=== PATIENT | male | born 1960 | race Caucasian/White ===

== ENCOUNTER 2023-02-02 13:39 | Observation (INO) | payer OTHER, SELFPAY ==
[2023-02-02] VITALS (7 sets, daily range): BP systolic 133–168; BP diastolic 73–83; PULSE 79–114; RESP 16–22; TEMP 36.6–37.2; O2SAT 96–100; BMI 31.1
--- NOTE | ~2023-02-02 | XR_ITS ---
EXAMINATION: XR chest 1V portable Exam Date/Time: 02/02/2023 14:45 CDT HISTORY: seizure Comparison: None. RESULT: Lines, tubes, and devices: None. Lungs and pleura: Mild senescent change, otherwise clear. Cardiomediastinal silhouette: Stable. Other: No acute osseous or upper abdominal finding. IMPRESSION: No acute cardiopulmonary process. Reviewed, dictated and finalized at location K.
--- NOTE | ~2023-02-02 | CT_ITS ---
EXAMINATION: CT brain wo con DATE: 02/02/2023 14:37 INDICATION: seizure . TECHNIQUE: Computed tomography (CT) of the head was performed without intravenous contrast. The mA wa s adjusted according to patient size. Iterative reconstruction technique was employed. The dose-lengt h product was 605.33 mGy-cm. COMPARISON: None. FINDINGS: Motion artifact present. No acute intracranial hemorrhage or extra-axial fluid collection. No hydrocephalus, mass, or herniation. No acute ischemic infarct. Unremarkable dural venous sinus attenuation. No acute osseous abnormality. Left maxillary retention cyst/polyp, the remaining aerated spaces are clear. IMPRESSION: No acute intracranial process. Reviewed, dictated and finalized at location K.
--- NOTE | ~2023-02-02 | MR_ITS ---
EXAMINATION: MR brain/brain stem wo/w con DATE: 02/03/2023 14:00 INDICATION: new onset seizure TECHNIQUE: Magnetic resonance imaging (MRI) of the brain and brainstem was performed without and with 20 cc MultiHance intravenous contrast. Sequences included sagittal and axial T1-weighted SE, axial d iffusion-weighted FS EPI ASSET, axial T2*-weighted GRE, axial T2-weighted FLAIR Propeller, and axial T2-weighted Propeller. Postcontrast axial and coronal T1-weighted SE was obtained. Apparent diffusion coefficient (ADC) maps were created. COMPARISON: CT brain 02/02/2023. FINDINGS: No abnormal restricted diffusion to suggest acute ischemic infarct. No MRI evidence of hemorrhage or extra-axial collection. No suspicious foci of susceptibility to suggest prior intraparenchymal hemorr leonie. Normal white matter signal. No evidence of advanced or lobar predominant parenchymal volume los s. The basilar cisterns are patent. Flow voids are preserved. Retention cysts or polyps in the left m axillary sinus, the remaining aerated spaces are within normal limits. Globes and orbital contents ar e within normal limits. IMPRESSION: Unremarkable MR brain findings. Reviewed, dictated and finalized at location K.
--- NOTE | 2023-02-02 13:51 | ECG_ITS ---
Measurements Intervals [place] Rate: 109 P: 43 MI: 181 QRS: 18 QRSD: 100 T: 53 QT: 324 QTc: 437 Interpretive Statements [address]US T[address]ARDIA ST SEGMENT ABNORMALITY, CONSIDER ANTERIOR ISCHEMIA ABNORMAL ECG NO PREVIOUS ECG AVAILABLE FOR COMPARISON Electronically Signed On 02-03-2023 13:24:06 CDT by Austyn Farley M.D.
[2023-02-02] MEDS: LACTATED RINGERS 1,000 ML 999 ML IV CONT ×2 (14:03→15:00)
[2023-02-02 14:17] LABS: Basophils Absolute Auto 0.1 K/mm3 (0.0-0.1); Basophils Percent Auto 1.2 % (0.2-1.2); Eosinophils Absolute Auto 0.1 K/mm3 (0-0.3); Eosinophils Percent Auto 1.8 % (0-4.4); Immature Granulocyte Absolute 0.04 K/mm3 (0.00-0.031); Immature Granulocyte Percent A 0.5 % (0-0.5); Lymphocytes Absolute Auto 3.27 K/mm3 (0.9-3.2); Lymphocytes Percent Auto 42.6 % (18.3-44.2); Mean Corpuscular Hemoglobin 29.5 pg (26-34); Mean Corpuscular Volume 86.7 fl (80-100); Mean Platelet Volume 10.6 fl (7.4-10.4); Monocytes Absolute Auto 0.6 K/mm3 (0.1-0.6); Monocytes Percent Auto 8.3 % (2.6-8.5); Neutrophils Absolute Auto 3.5 K/mm3 (1.3-6.7); Neutrophils Percent Auto 45.6 % (45.5-73.1); Platelet Count Result 217 k/mm3 (150-375); Red Blood Count 5.42 M/mm3 (4.6-6.20); White Blood Count 7.7 K/mm3 (4.5-10.0)
--- NOTE | 2023-02-02 14:19 | ED.SEIZURE ---
HPI - Seizure General Chief Complaint: Seizure Stated Complaint: seizure Time Seen by Provider: 02/02/23 13:45 Source: patient, EMS and RN notes reviewed Mode of arrival: EMS Limitations: no limitations History of Present Illness HPI Narrative: This is a 62 year old male with history of hyperlipidemia who presents for evaluation of a seizure. Patient was at a store when he states he began to feel funny. EMS states a call was sent out for cardiac arrest but patient had pulse and was breathing on their arrival. Patient was oriented x 1 and he had bitten his tongue. Patient is more alert now. He denies history of seizure. He denies chest pain , headache, shortness of breath. He denies history of cancer or traumatic brain injury. Nursing reports that patient was standing in line when he just dropped . It is unclear if there was seizure activity. Related Data Home Medications Medication Instructions Recorded Confirmed rosuvastatin 10 mg tablet 10 mg PO DAILY 02/02/23 02/02/23 Allergies Allergy/AdvReac Type Severity Reaction Status Date / Time No Known Allergies Allergy Verified 02/02/23 14:00 Review of Systems Constitutional: Constitutional: Reports fatigue and Denies weakness Cardiovascular: Cardiovascular: Denies syncope, Denies rapid heart rate, Denies irregular heart rhythm, Denies leg edema and Denies dyspnea Respiratory: Respiratory: Denies chest congestion, Denies hemoptysis, Denies excessive phlegm production and Denies dyspnea Gastrointestinal: Gastrointestinal: Denies abdominal pain, Denies hematochezia, Denies diarrhea and Denies vomiting Genitourinary: Genitourinary: Denies hematuria, Denies dysuria, Denies penile discharge and Denies testicular pain Musculoskeletal: Musculoskeletal: Denies joint swelling, Denies loss of height and Denies muscle weakness Neurologic: Denies syncope, Denies focal weakness and Denies weakness PMFSH Past Medical History Medical History (Updated 02/03/23 @ 17:31 by Lorie Bahena MD) Hyperlipidemia Surgical History Surgical History (Updated 02/03/23 @ 02:01 by Anjelica Senior APRN) History of knee replacement Social History Social History (Updated 02/03/23 @ 02:02 by Anjelica Senior APRN) Social History: Currently lives at home with his . Surrogate decision maker: Cyn Schreiber, . Full code. Smoking status: Never smoker Alcohol intake: current Drinks per week: 3 Alcohol use details: occasional Substance use: never Substance use type: does not use Lack of Transportation: No Lack of Food: Never True Current Housing: I Have Housing Concerned About Future Housing: No Difficulty Paying Gas/Electric Bills: No Difficulty Paying for Meds: No Currently Unemployed: No Education: Bachelor's Degree Difficulty w/ Childcare or Family Care: No Spiritual care concerns: No Exam Const: General: no acute distress and alert Nutritional Appearance: well nourished Orientation/consciousness: patient oriented x3 HENMT: Head: normal to inspection Face and sinus: normal facial exam Mouth: Yes lip normal and Yes moist mucous membranes Throat: uvula midline Other: ecchymosis to sides of tongue, no large laceration, no active bleeding Eyes: Pupils: Equal, round and reactive pupils present EOM: EOMs intact bilaterally Neck: Neck: normal visual inspection Chest: Chest palpation & inspection: normal inspection of the chest Resp: Effort & Inspection: normal respiratory effort Auscultation: clear to auscultation bilaterally Cardio: Rate: tachycardic Rhythm: regular rhythm Heart sounds: no murmurs GI: Auscultation: normal bowel sounds Skin: General skin exam: normal color Neuro: General: patient oriented x3, moves all extremities and CN's II-XI intact bilaterally Speech: normal speech Extrem: General: normal to inspection Psych: Appearance: grossly normal Mental Status: mental status grossly n
[2023-02-02 14:27] LABS: Prothrombin Time 13.5 Seconds (11.1-14.7)
[2023-02-02 14:28] LABS: Ethanol < 10 mg/dL (<10)
[2023-02-02 14:28] LABS: Partial Thromboplastin Time 23.9 SECONDS (22.3-36.8)
[2023-02-02 14:29] LABS: Lactic Acid Reflex 7.4 mmol/L (0.7-2.0)
[2023-02-02 14:30] LABS: Albumin Level 4.2 g/dL (3.5-5.1); Alkaline Phosphatase 67 U/L (38-126); Anion Gap 17 mmol/L (8-16); Aspartate Amino Transferase 31 U/L (17-59); Bilirubin,Total 0.5 mg/dL (0.2-1.3); Blood Urea Nitrogen 13 mg/dL (9-20); Calcium 8.7 mg/dL (8.4-10.2); Carbon Dioxide 13 mmol/L (22-30); Chloride 108 mmol/L (98-107); Estimated CRCL calculation 81 ml/min; Estimated Glomerular Filt Rate > 60; Glucose 109 mg/dL (65-110); Magnesium 2.8 mg/dL (1.6-2.3); Potassium 3.7 mmol/L (3.4-5.0); Sodium 138 mmol/L (137-145)
[2023-02-02 14:38] LABS: Alanine Aminotransferase 40 U/L (6-50)
[2023-02-02 14:39] LABS: Troponin I < 0.012 ng/mL (0.000-0.034)
[2023-02-02 14:57] LABS: Add Urine Microscopic? YES; Appearance Urine Clear (Clear); Bacteria Urine None Seen /hpf; Bilirubin Urine Negative (Negative); Blood Urine 1+ (Negative); Color Urine Yellow (Yellow); Glucose Urine UA Negative (Negative); Ketones Urine Negative (Negative); Leukocyte Esterase Ur Negative LEU/UL (Negative); Nitrate Urine Negative (Negative); Non Pathogenic Casts 0-2; Protein Urine Trace mg/dL (Negative); RBC Urine 0-2 /hpf (0-2); Specific Grav Ur 1.013 (1.001-1.035); Squamous Epithelial Cell Urine None seen /hpf (Few); Urobilinogen Urine 0.2 mg/dL (<2.0); WBC Urine 0-5 /hpf; pH Urine 5.5 (5.0-9.0)
[2023-02-02 15:37] LABS: Barbiturate Screen Urine Negative (Negative); Benzodiazepines Screen Urine Negative (Negative)
[2023-02-02 15:38] LABS: Amphetamine Screen Urine Negative (Negative); Cannabinoid Screen Urine Negative (Negative); Cocaine Screen Urine Negative (Negative); Methadone Screen Urine Negative (Negative); Opiate Screen Urine Negative (Negative)
[2023-02-02 15:43] LABS: Phencyclidine Screen Urine Negative (Negative)
[2023-02-02 17:17] LABS: Reflex Lactic Acid Yes or No Add Lactic
[2023-02-02 17:50] LABS: Lactic Acid 1.3 mmol/L (0.7-2.0)
--- NOTE | 2023-02-02 18:03 | PM.IMHP ---
H&P: HPI History of Present Illness Date/Time: 02/02/23 18:03 Chief Complaint: Seizure Narrative: 62-year-old male presents here with seizure with past medical history of hyperlipidemia. Patient was at [facility] today with his when he began to feel dizzy. Dizziness lasted for approximately 5 minutes. Patient alerted his that he did not feel well and they attempted to exit the store. felt grocery cart began to pull away from her and she was able to pull patient as he began to fall over. Bystander immediately assisted the in lowering patient to the floor. reports that patient locked up and then began to shake in all extremities. Eyes rolled back and he became cyanotic. Seizure lasted approximately 10-15 minutes, confirmed with phone calls that were made during the event as time markers. Bystander initially started compression however they were ceased and patient was rolled onto his side. noted blood and drool from patient's mouth. No incontinence. Patient remained altered throughout EMS transport. Now A/Ox4. No prior history of seizures. However patient does reports an abnormal event that happened approximately 2 years ago in June of 2020. Patient fell off for 2 weeks. He was assaulting his driveway when he began experiencing similar dizziness to today, dizziness lasted approximately 5 minutes. Patient has no recollection but, patient fell backwards striking his head on driveway with subsequent laceration requiring stitches. Patient then crawled to the front door, vaguely remembers getting there where his found him. No recollection of falling or hitting head. Was not incontinent. reports that he was confused after. He was brought to the emergency department where they performed a cardiac workup which was benign. Current complaint of tenderness with palpation along his left chest, reports this is where CPR was briefly performed before bystander realized patient was having a seizure. Review of Systems Review of Systems: He denies any current headache, dizziness, changes in sensation, extremity weakness, or neuro deficits. [facility] Past Medical History Medical History (Updated 02/03/23 @ 02:02 by Anjelica Senior APRN) Hyperlipidemia Surgical History Surgical History (Updated 02/03/23 @ 02:01 by Anjelica Senior APRN) History of knee replacement Social History Social History (Updated 02/03/23 @ 02:02 by Anjelica Senior APRN) Social History: Currently lives at home with his . Surrogate decision maker: Cyn Schreiber, . Full code. Smoking status: Never smoker Alcohol intake: current Drinks per week: 3 Alcohol use details: occasional Substance use: never Substance use type: does not use Lack of Transportation: No Lack of Food: Never True Current Housing: I Have Housing Concerned About Future Housing: No Difficulty Paying Gas/Electric Bills: No Difficulty Paying for Meds: No Currently Unemployed: No Education: Bachelor's Degree Difficulty w/ Childcare or Family Care: No Spiritual care concerns: No Meds Home Medications and Allergies Home Medications Medication Instructions Recorded Confirmed Type rosuvastatin 10 mg tablet 10 mg PO DAILY 02/02/23 02/02/23 History Allergies Allergy/AdvReac Type Severity Reaction Status Date / Time No Known Allergies Allergy Verified 02/02/23 14:00 Vital Signs Vital Signs - 24 hr 02/02/23 13:38 02/02/23 15:32 02/02/23 16:16 Temperature 98.4 F Pulse Rate 114 H 88 83 Respiratory Rate 18 16 18 Blood Pressure 168/81 H 133/83 140/79 Pulse Oximetry 96 100 100 Oxygen Delivery Room Air 02/02/23 16:46 Temperature Pulse Rate 84 Respiratory Rate 18 Blood Pressure 138/80 Pulse Oximetry 100 Oxygen Delivery Exam Const: General: comfortable and no acute distress HENMT: Mouth: Yes moist mucous membranes Eyes: General: appearance normal, b
[2023-02-03] VITALS (9 sets, daily range): BP systolic 120–143; BP diastolic 83–90; PULSE 60–91; RESP 16–20; TEMP 36.2–36.3; O2SAT 98–99
[2023-02-03 06:54] LABS: Basophils Absolute Auto 0.1 K/mm3 (0.0-0.1); Basophils Percent Auto 0.6 % (0.2-1.2); Eosinophils Absolute Auto 0.1 K/mm3 (0-0.3); Hematocrit 44.9 % (42.0-52.0); Hemoglobin 15.4 g/dL (14.0-18.0); Immature Granulocyte Absolute 0.01 K/mm3 (0.00-0.031); Immature Granulocyte Percent A 0.1 % (0-0.5); Lymphocytes Absolute Auto 1.57 K/mm3 (0.9-3.2); Lymphocytes Percent Auto 20.3 % (18.3-44.2); Mean Corpuscular HGB Conc 34.3 g/dl (32-36); Mean Corpuscular Hemoglobin 29.8 pg (26-34); Mean Platelet Volume 10.6 fl (7.4-10.4); Monocytes Absolute Auto 0.6 K/mm3 (0.1-0.6); Monocytes Percent Auto 8.2 % (2.6-8.5); Neutrophils Absolute Auto 5.4 K/mm3 (1.3-6.7); Neutrophils Percent Auto 69.8 % (45.5-73.1); Platelet Count Result 171 k/mm3 (150-375); Red Blood Count 5.16 M/mm3 (4.6-6.20); Red Cell Distribution Width 13.2 % (11.5-14.5); White Blood Count 7.7 K/mm3 (4.5-10.0)
[2023-02-03 06:57] LABS: Alanine Aminotransferase 26 U/L (6-50); Albumin Level 3.8 g/dL (3.5-5.1); Alkaline Phosphatase 68 U/L (38-126); Anion Gap 5 mmol/L (8-16); Aspartate Amino Transferase 31 U/L (17-59); Blood Urea Nitrogen 11 mg/dL (9-20); Calcium 8.4 mg/dL (8.4-10.2); Carbon Dioxide 23 mmol/L (22-30); Chloride 109 mmol/L (98-107); Estimated CRCL calculation 87 ml/min; Estimated Glomerular Filt Rate > 60; Glucose 128 mg/dL (65-110); Potassium 3.8 mmol/L (3.4-5.0); Sodium 137 mmol/L (137-145)
[2023-02-03] MEDS: ENOXAPARIN 40 MG/0.4 ML SYRINGE SUB-Q (07:54)
[2023-02-03] MEDS: ROSUVASTATIN 10 MG TABLET PO (07:54)
--- NOTE | 2023-02-03 18:45 | PM.IMPN ---
Progress Note: A&P Assessment and Plan (1) Seizure: Code(s): R56.9 - Unspecified convulsions Status: Acute (2) New onset seizure: Code(s): R56.9 - Unspecified convulsions Status: Acute (3) Hyperlipidemia: Code(s): E78.5 - Hyperlipidemia, unspecified Status: Acute Plan 1. Seizure Head CT:? No acute intracranial MRI brain normal CXR: No acute cardiopulmonary process Neurology consulted - MD Pablo. recommending holding on antiepileptic medication due to possibility of being 1st seizure versus 2nd.? Pending neurology consult and evaluation Likely due to acute caffeine poisoning Q4 neuro checks and vital signs Tylenol and Zofran p.r.n. CBC and chemistry unremarkable, excluding magnesium of 2.8 Lactic acid normal now Negative UDS EKG showed sinus tachycardia, nonspecific ST and T-wave abnormality. Chronic Conditions -hyperlipidemia: Continue atorvastatin Diet:? Heart healthy GI Prophylaxis:? Not currently indicated DVT Prophylaxis:? SCD, Lovenox 40 Lines: pIV Code Status:? Full code Subjective Date/time seen: 02/03/23 18:45 Interval history: no issues or complaints. son brought up pt had an exorbitant amount of coffee/caffeine yesterday. He takes it regularly but this was an exorbitant amount plus he tried espresso for the first time. this is likely the cause per uptodate - At recommended doses, caffeine acts as a mild INJURY PREVENTION COORDINATOR stimulant, but in overdose, seizures can develop from antagonism of INJURY PREVENTION COORDINATOR adenosine receptors [3https://www.[employer].com/contents/fgvaj-iaktfsqq-wsuyzhznl/abstract/3]. mri brain and ct head both negative waiting for neuro consult pt is ambulatory and aysmptomatic Review of Systems Review of Systems: otherwise negative Exam Narrative: Const:?? General: comfortab le and no acute di stress HENMT:?? Mouth: Yes moist m ucous membranes Eyes:?? General: appearanc e normal, both eye s and all related structures? Sclera : sclerae normal? Pupils: Equal, rou nd and reactive pu pils present Resp:?? Effort & Inspectio n: normal respirat ory effort? Auscul tation: clear to a uscultation bilate rally Cardio:?? Rate: regular rate ? Rhythm: regular rhythm? Other: S1 -S2 present withou t murmur, rub, ect opy ? GI:?? GI Palp: Yes Soft to palpation? Ausc ultation: normal b owel sounds Skin:?? General skin exam: normal color and no rashes or lesio ns noted? Wounds: no wounds Neuro:?? Speech: normal spe ech? Motor exam (n euro): 5/5 motor s trength present th roughout? Sensory Exam: normal sensa tion? Other: A/Ox 4 ? Extrem:?? General: normal to inspection? Other : No edema ? Psych:?? Mental Status: men jean-claude status grossly normal? Affect: n ormal affect? Othe r: Good insight a nd judgment, pleas ant Objective Data Vital Signs Vital Signs: Vital Signs - 24 hr 02/02/23 21:43 02/02/23 21:57 02/03/23 06:00 Temperature 97.8 F 97.4 F L Pulse Rate 79 74 Respiratory Rate 18 18 Blood Pressure 135/7
[2023-02-04] VITALS: PULSE 53
[2023-02-04 04:00] VITALS: PULSE 54
[2023-02-04 05:21] VITALS: BP 119/95; PULSE 63; RESP 18; TEMP 35.7; O2SAT 99
[2023-02-04 08:00] VITALS: PULSE 73
[2023-02-04] MEDS: ROSUVASTATIN 10 MG TABLET PO (08:35)
[2023-02-04 12:00] VITALS: PULSE 80
--- NOTE | 2023-02-04 13:09 | WPDNEURCNPN ---
Assessment and Plan Assessment and plan (1) New onset seizure: Code(s): R56.9 - Unspecified convulsions Status: Acute Plan 1. Seizure disorder history of 1 seizure in the past as well all the pros and cons with the patient as well as his discussed he needs to be on the anticonvulsants and to be followed by a physician as an outpatient he has was instructed to drive and emphasized the driving will not be permitted before he follows with a neurologist or if he has no seizure for over the next 6 months. Consult date: 02/04/23 HPI: Octaviano Schreiber is a 62 year old male admitted to the hospital through the emergency room for the evaluation of her seizure patient reportedly was at a store when he stated he became to feel funny EMS was called was sent patient a pulse was breathing on the arrival was oriented x1 had bitten his tongue and was more alert he gave no history of seizures in the past no history of any other neurological symptomatology. 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 Surrogate decision maker: Cyn Schreiber, . Full code. Smoking status: Never smoker Alcohol intake: current Drinks per week: 3 Alcohol use details: occasional Substance use: never Substance use type: does not use Lack of Transportation: No Lack of Food: Never True Current Housing: I Have Housing Concerned About Future Housing: No Difficulty Paying Gas/Electric Bills: No Difficulty Paying for Meds: No Currently Unemployed: No Education: Bachelor's Degree Difficulty w/ Childcare or Family Care: No Spiritual care concerns: No Meds Home Medications and Allergies Home Medications Medication Instructions Recorded Confirmed Type rosuvastatin 10 mg tablet 10 mg PO DAILY 02/02/23 02/02/23 History Allergies Allergy/AdvReac Type Severity Reaction Status Date / Time No Known Allergies Allergy Verified 02/02/23 14:00 Vital Signs Vital Signs - 24 hr 02/03/23 14:00 02/03/23 16:00 02/03/23 20:00 Temperature 36.3 C L Pulse Rate 60 61 Respiratory Rate 20 Blood Pressure 124/83 Pulse Oximetry 99 Oxygen Delivery Room Air 02/03/23 21:46 02/03/23 20:00 02/04/23 00:00 Temperature 36.2 C L Pulse Rate 64 69 53 L Respiratory Rate 16 Blood Pressure 120/83 Pulse Oximetry 98 Oxygen Delivery 02/04/23 04:00 02/04/23 05:21 02/04/23 08:00 Temperature 35.7 C L Pulse Rate 54 L 63 73 Respiratory Rate 18 Blood Pressure 119/95 H Pulse Oximetry 99 Oxygen Delivery 02/04/23 12:00 Temperature Pulse Rate 80 Respiratory Rate Blood Pressure Pulse Oximetry Oxygen Delivery Exam Narrative: revealed him to be awake alert cooperative, head normocephalic with no cranial bruits, ear nose throat examination normal, neck supple with no cranial bruit or cervical bruits, heart regular with no murmur, lungs clear to auscultation, abdomen soft no organomegaly, neurologically awake alert oriented his speech nor dysphasic not dysarthric not dysphonic the pupils round regular feels the vision full extraocular movements. Face symmetrical tongue midline motor examination revealed him to have deidre
[2023-02-04] MEDS: levETIRAcetam Tablet 250 MG, levETIRAcetam Tablet 500 MG 750 MG PO (13:36)
[2023-02-04 14:00] VITALS: BP 141/88; PULSE 61; RESP 18; TEMP 36.5; O2SAT 97
--- NOTE | 2023-02-04 17:13 | PM.DS ---
DS: Admitting Diagnosis Discharge Date 02/04/23 Admitting Diagnosis seizure DS: Discharge Diagnosis Discharge Diagnosis (1) Hyperlipidemia: Code(s): E78.5 - Hyperlipidemia, unspecified Status: Acute (2) New onset seizure: Code(s): R56.9 - Unspecified convulsions Status: Acute (3) Seizure: Code(s): R56.9 - Unspecified convulsions Status: Acute Plan Primary epilepsy: Seizure disorder history of 1 seizure in the past as well all the pros and cons with the patient as well as his discussed he needs to be on the anticonvulsants and to be followed by a physician as an outpatient he has was instructed to drive and emphasized the driving will not be permitted before he follows with a neurologist or if he has no seizure for over the next 6 months. - was started on keppra 750 mg bid by neurologist - f/u with [place] in [place] [id number]. Seizure- Primary epilepsy vs acute caffeine poisoning Head CT:? No acute intracranial MRI brain normal CXR: No acute cardiopulmonary process Neurology consulted - MD Pablo. recommending holding on antiepileptic medication due to possibility of being 1st seizure versus 2nd.? Pending neurology consult and evaluation Likely due to?acute caffeine poisoning Q4 neuro checks and vital signs Tylenol and Zofran p.r.n. CBC and chemistry unremarkable, excluding magnesium of 2.8 Lactic acid normal now Negative UDS EKG showed sinus tachycardia, nonspecific ST and T-wave abnormality.Chronic Conditions -hyperlipidemia: Continue atorvastatin Diet:? Heart healthy Code Status:? Full code DS: Summary Hospital Course Reason for hospitalization: seizure Hospital Course: Octaviano Schreiber is a 62 year old male admitted to the hospital through the emergency room for the evaluation of her seizure patient reportedly was at a store when he stated he became to feel funny EMS was called was sent patient a pulse was breathing on the arrival was oriented x1 had bitten his tongue and was more alert he gave no history of seizures in the past no history of any other neurological symptomatology.? 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 18:45 Interval history: no issues or complaints. son brought up pt had an exorbitant amount of coffee/caffeine yesterday. He takes it regularly but this was an exorbitant amount plus he tried espresso for the first time. this is likely the cause per uptodate -?At recommended doses, caffeine acts as a mild AIR BAG STRIPPER stimulant, but in overdose, seizures can develop from antagonism of AIR BAG STRIPPER adenosine receptors [[email or web address]://[email or web address]/contents/ldtga-dyygpfts-okwnjgzll/[email or web address]]. mri brain and ct head both negative waiting for neuro consult pt is ambulatory and aysmptomatic Status at Discharge Cognitive/behavioral status at discharge: Good Time Spent with Patient Time attestation: Total time spent providing and/or coordinating discharge services: 30 min Exam Narrative: ?revealed him to be awake alert cooperative, head normocephalic with no cranial bruits, ear nose throat examination normal, neck supple with no cranial bruit or cervical bruits, heart regular with no murmur, lungs clear to auscultation, abdomen soft no organomegaly, neurologically awake alert oriented his speech nor dysphasic not dysarthric not dysphonic the pupils round regular feels the vision full extraocular movements.? Face symmetrical tongue midline motor examination revealed him to have normal strength and tone reflexes symmetrical plantars downgoing, patient in the room.
== END 2023-02-04 17:40 | disposition home or self-care (01) ==
LOC: ANHED 16:32 → ANH3MEDSUR 18:03
PROVIDERS: Admitting Provider Hospitalist; Emergency Provider General Practice; Visit Provider Internal Medicine
DX: R56.9 Unspecified convulsions (principal); E78.5 Hyperlipidemia, unspecified; R94.31 Abnormal electrocardiogram [ECG] [EKG]; R53.83 Other fatigue; R07.9 Chest pain, unspecified; F10.90 Alcohol use, unspecified, uncomplicated; Y90.0 Blood alcohol level of less than 20 mg/100 ml; Z79.899 Other long term (current) drug therapy
CPT/HCPCS: 36415; 70450; 70553; 71045; 80053; 80307; 81001; 83605; 83735; 84484; 85025; 85610; 85730; 93005; 96360; 96361; 96372; 99285; A9270; A9577; G0378; J1650; J7120